=== PATIENT | female | born 1970 | race Two or more races ===

== ENCOUNTER 2020-05-26 11:18 | Emergency (ER) | payer MEDICAID, OTHER ==
[~2020-05-26] VITALS: Ht 167.6 cm; Wt 97.1 kg
[2020-05-26 13:11] VITALS: BP 147/98
[2020-05-26] MEDS ORDERED: HYDROcodone-ACET 5/325MG TAB PO ONE (13:45)
== END 2020-05-26 14:49 | disposition home or self-care (01) ==
LOC: ER 11:18
DX: S52.511A Displaced fracture of right radial styloid process, initial encounter for closed fracture (principal); Z88.2 Allergy status to sulfonamides; W01.0XXA Fall on same level from slipping, tripping and stumbling without subsequent striking against object, initial encounter; Y93.89 Activity, other specified; Y92.89 Other specified places as the place of occurrence of the external cause; Y99.8 Other external cause status
CPT/HCPCS: 29125; 73060; 73080; 73090; 73110